=== PATIENT | male | born 1980 | race Caucasian/White ===

== ENCOUNTER 2017-03-05 10:37 | Emergency (ER) | payer SELFPAY ==
[~2017-03-05] VITALS: Ht 180.3 cm; Wt 92.1 kg
[2017-03-05] MEDS ORDERED: HYDROcodone/APAP 7.5 MG/325 MG (LORTAB, LORCET PLUS) TABLET PO STA (11:41)
--- NOTE | 2017-03-05 11:43 | ED General ---
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 FOR LAST 3 DAYS HAS HAD PAIN. Nursing Sepsis Screen: No Definite Risk Source of Information: Patient Exam Limitations: No Limitations History of Present Illness Time Seen by Provider: 11:30 Initial Comments 37-year-old male patient presents to the emergency department with complaints of left calf pain and swelling for 3 days. 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 Denies any known point of injury. Does report claudication. Denies shortness of air or chest pain. Denies a family history for blood clots. Location Injury Occurred: denies known injury Timing/Duration: 3-4 Days, Constant Modifying Factors: worse with Other (worse with ambulation) Allergies and Home Medications Allergies Coded Allergies: No Known Drug Allergies (Unverified , 03/05/17) Home Medications Hydrocodone/Acetaminophen 1 Each Tablet, 1-2 EACH PO Q4H PRN for PAIN, #30 Ref 0 Prescribed by: DARREL BOB on 03/05/17 1412 Rivaroxaban 20 Mg Tablet, 20 MG PO DAILY, #30 Ref 0 Prescribed by: DARREL BOB on 03/05/17 1411 Constitutional: No chills, No diaphoresis, No dizziness, No fever, No malaise Respiratory: No cough, No dyspnea on exertion, No orthopnea, No short of breath Cardiovascular: see HPI, No chest pain, edema (LLE), No palpitations, No syncope Gastrointestinal: No abdominal pain, No constipation, No diarrhea, No nausea, No vomiting Genitourinary: no symptoms reported Musculoskeletal: No back pain, joint pain (left calf pain), joint swelling ( Left calf swelling), No neck pain Skin: No change in color, No lumps Psychiatric/Neurological: Denies Numbness, Denies Paresthesia, Denies Tingling , Denies Weakness Hematologic/Lymphatic: Denies Blood Clots, Denies Easy Bleeding, Denies Easy Bruising All Other Systems Reviewed Negative Unless Noted: Yes (Negative excepted noted.) Past Fslyeft-Gontzt-Wooumt Hx Patient Social History Alcohol Use: Denies Use Recreational Drug Use: No Smoking Status: Current Someday Smoker Recent Foreign Travel: No Contact w/Someone Who Travel: No Recent Infectious Disease Expo: No Surgeries History of Surgeries: No Respiratory History of Respiratory Disorde: No Cardiovascular History of Cardiac Disorders: No Neurological History of Neurological Disord: No Endocrine History of Endocrine Disorders: No HEENT History of HEENT Disorders: No Psychosocial History of Psychiatric Problem: No Integumentary History of Skin or Integumenta: No Reviewed Nursing Assessment Reviewed/Agree w Nursing PMH: Yes Family Medical History Significant Family History: No Pertinent Family Hx Physical Exam Vital Signs Vital Sign - Last 12Hours 03/05/17 10:54 Temp 99.0 Pulse 68 Resp 18 B/P (MAP) 136/86 (103) Pulse Ox 98 O2 Delivery Room Air Capillary Refill : Less Than 3 Seconds General Appearance: No Apparent Distress, WD/WN Respiratory: Lungs Clear, Normal Breath Sounds, No Accessory Muscle Use, No Respiratory Distress Cardiovascular: Regular Rate, Rhythm, No Murmur, Normal Peripheral Pulses Back: Normal Inspection, No Vertebral Tenderness, No Decreased Range of Motion Extremity: Normal Capillary Refill, Normal Range of Motion, Inflammation ( faint pink blush of the posterior calf with mild warmth. no lesions or wounds noted.), Swelling (left calf swelling and tenderness) Neurologic/Psychiatric: Alert, Oriented x3, No Motor/Sensory Deficits, Normal Mood/Affect Skin: Normal Color, Warm/Dry, Other (faint pink blush of the posterior calf with mild warmth. no lesions or wounds noted.) Progress/Results/Core Measures Suspected Sepsis Recent Fever Within 48 Hours: No Infection Criteria Present: None New/Unexplained Altered Menta: No Sepsis Screen: No Definite Risk Sepsis Diagnosis: SIRS Temperature:99.0 Pulse: 68 Respiratory Rate: 18 Blood Pressure 136 /86 Mean: 103 Results/Orders My Orders Orders - DARREL BOB Us Venous Lower Ext Lt (03/05/17 11:41) Hydrocodone/Apap 7.5/325 Tab (Lortab 7. (03/05/17 11:41) Rivaroxaban Tablet (Xarelto Tablet) (03/05/17 15:00) Vital Signs/I&O Vital Sign - Last 12Hours 03/05/17 10:54 Temp 99.0 Pulse 68 Resp 18 B/P (MAP) 136/86 (103) Pulse Ox 98 O2 Delivery Room Air Capillary Refill : Less Than 3 Seconds Blood Pressure Mean: 103 Diagnostic Imaging Diagonstic Imaging: Ultrasound Plain Films/CT/US/NM/MRI: leg (LLE venous doppler) Departure Impression Impression: Primary Impression: DVT (deep venous thrombosis) Disposition: 01 HOME, SELF-CARE Condition: Improved Departure-Patient Inst. Decision time for Depature: 14:09 Referrals: DANIEL TAYLOR MD NO,LOCAL PHYSICIAN (PCP) Primary Care Physician Patient Instructions: Deep Vein Thrombosis (Blood Clots in the Legs) (DC) Add. Discharge Instructions: All discharge instructions reviewed with patient and/or family. Voiced understanding. Medications as instructed. Xarelto 15 mg 1 tablet by mouth twice daily for 21 days (Samples of 42 tablets of xarelto 15 mg given to you in the emergency department), then 20 mg by mouth daily. Tylenol extra strength [id number] as directed for pain. Elevate the left lower extremity on pillows above the level of the heart. Avoid compression of the left leg until released by your primary care provider of choice. Avoid massaging the left leg. No smoking. Expect a call from [facility] Dr[facility] office) to schedule outpatient follow-up appointment next week. Avoid sitting for longer and then 2 hours without moving around a little. Then elevate the left leg on pillows. Return immediately to the emergency department for worsened pain, swelling, redness, fever, shortness of air, chest pain, dizziness, discoloration of the foot, or any other concerns. Scripts Hydrocodone/Acetaminophen (Hydrocodon -Acetaminophen 5-325) 1 Each Tablet 1-2 EACH PO Q4H Y for PAIN, #30 TAB 0 Refills Prov: DARREL BOB 03/05/17 Rivaroxaban (Xarelto) 20 Mg Tablet 20 MG PO DAILY, #30 TAB 0 Refills Prov: DARREL BOB 03/05/17 Work/School Note: Local Medical Staff Listing, Work Release Form Date Seen in the Emergency Department: Mar 05, 2017 Return to Work: Mar 09, 2017 Other Restrictions Listed Below: keep left leg elevated as much as possible. Restrictions: may walk a short distance in small intervals until released by PCP. DARREL BOB Mar 05, 2017 11:43
--- NOTE | 2017-03-05 14:00 | Diagnostic Imaging Report ---
EXAM: US VENOUS LOWER EXT LT INDICATION: Left lower extremity swelling and pain. COMPARISON: None. TECHNIQUE: Duplex, louis-scale and color-flow imaging of the left lower extremity venous system was performed FINDINGS: The left common femoral vein, superficial femoral vein and profunda femoris veins are normal. These vessels show normal compressibility, color flow, and doppler augmentation. There is occlusive thrombus within the left popliteal and posterior tibial veins. The peroneal vein is not well visualized. IMPRESSION: Acute deep venous thrombosis within the left popliteal and posterior tibial veins. Report was called to [facility] by oscar at 1:58 p.m. Dictated by: Dictated on workstation # [id number]
[2017-03-05] MEDS ORDERED: RIVA20TA PO (14:11)
[2017-03-05] MEDS ORDERED: HYDR-3812 PO (14:12)
[2017-03-05] MEDS ORDERED: RIVAROXABAN 15 MG TABLET (XARELTO) PO ONE (15:00)
[2017-03-05 15:07] VITALS: BP 126/69
== END 2017-03-05 15:06 | disposition home or self-care (01) ==
LOC: EDUNIT# 10:37 → ER 10:41
DX: I82.432 Acute embolism and thrombosis of left popliteal vein (principal); I82.442 Acute embolism and thrombosis of left tibial vein; F17.200 Nicotine dependence, unspecified, uncomplicated
CPT/HCPCS: 99283

== ENCOUNTER → 2022-01-12 | Outpatient (CLI) | payer BC ==
[~2022-01-12] MED LIST: ACHD5005 PO; RIVA20TA2 PO
--- NOTE | 2022-01-12 18:50 | Diagnostic Imaging Report ---
PROCEDURE: MRI right joint upper extremity without contrast. TECHNIQUE: Multiplanar, multisequence [id number] MRI of the right upper extremity was accomplished. INDICATION: Fall from ladder in September 2021 with right shoulder pain. COMPARISON: None. FINDINGS: No acute fracture is seen in the right shoulder. Alignment appears normal. There is a small right shoulder joint effusion. There is a full-thickness tear of the anterior supraspinatus tendon measuring about 1.2 cm transverse, with only about 0.6 cm of medial retraction. There is a small low-grade partial-thickness tear at the anterior fibers of the infraspinatus tendon. Teres minor tendon is intact. The subscapularis tendon is intact. No muscular atrophy is seen. The long head of the biceps tendon is normal in course and signal. The glenoid labrum is suboptimally evaluated in the absence of intra-articular contrast. No paralabral cyst is seen. The acromion has a curved undersurface. The coracoclavicular and coracoacromial ligaments are intact. There are severe degenerative changes at the acromioclavicular joint, contacting the supraspinatus muscle. IMPRESSION: 1. Moderate-sized full-thickness tear of the supraspinatus tendon and a small low-grade partial-thickness tear of the infraspinatus tendon. 2. Marked degenerative change in the acromioclavicular joint. 3. Small right shoulder joint effusion. Dictated by: Dictated on workstation # [id number]
== END ==
LOC: RAD 14:19
PROVIDERS: ATTEND Nurse Practitioner Family
DX: M75.121 Complete rotator cuff tear or rupture of right shoulder, not specified as traumatic (principal); M19.011 Primary osteoarthritis, right shoulder
CPT/HCPCS: 73221